=== PATIENT | female | born 1965 | race Caucasian/White ===

== ENCOUNTER 2020-07-08 10:59 | Emergency (ER) | payer OTHER ==
[2020-07-08 11:14] VITALS: BP 160/90; PULSE 63; TEMP 97.5; BMI 31.3
[2020-07-08] MEDS ORDERED: KETOROLAC TROMETHAMINE 15 MG/ML VIAL IM ONE (11:18)
[2020-07-08] MEDS ORDERED: KETOROLAC TROMETHAMINE 15 MG/ML VIAL ONE (11:28)
[2020-07-08 11:53] LABS: BASO % 0.5 % (0-2.0); EOS % 1.9 % (0-4.5); HEMOGLOBIN 12.8 GM/dl (10.7-15.3); LYMPH % 9.9 % (8-40); MCH 28.5 pg (25.7-33.7); MCHC 32.8 g/dl (32.0-36.0); MEAN CELL VOLUME 86.9 fl (80-96); MEAN PLT VOLUME 9.3 fl (7.5-11.1); MONO % 4.3 % (3.8-10.2); NEUT % 83.4 % (42.8-82.8); PLATELET COUNT 223 K/MM3 (134-434); RBC 4.49 M/mm3 (3.60-5.2); RDW 15.2 % (11.6-15.6); WHITE BLOOD COUNT 8.7 K/mm3 (4.0-10.8)
[2020-07-08 12:05] LABS: ALBUMIN 3.9 g/dl (3.4-5.0); BILIRUBIN,TOTAL 1.3 mg/dl (0.2-1); CREATININE 0.7 mg/dl (0.55-1.3); TOT PROT 6.8 g/dl (6.4-8.2)
[2020-07-08 12:12] LABS: ACTIVATED PTT 32.2 SECONDS (25.2-36.5)
[2020-07-08 12:16] LABS: INR 1.08 (0.82-1.09)
[2020-07-08 12:46] LABS: EPITHELIAL CELLS MANY /hpf
[2020-07-08 13:15] LABS: LIPASE 71 U/L (73-393)
== END 2020-07-08 12:51 | disposition home or self-care (01) ==
LOC: SUPCPDRO 10:59 → FER 10:59
PROC: 3E0233Z Introduction of Anti-inflammatory into Muscle, Percutaneous Approach (ICD-10-PCS; principal; 2020-07-08)
DX: N20.0 Calculus of kidney (principal)
CPT/HCPCS: 36415; 74176-TC; 80053; 81003; 81015; 83690; 84484; 85025; 85610; 85730; 87086; 99285-25

== ENCOUNTER 2020-07-11 07:18 | Emergency (ER) | payer OTHER ==
[2020-07-11] MEDS ORDERED: ONDANSETRON 4 MG/2 ML VIAL IVPUSH ONE (07:20)
[2020-07-11] MEDS ORDERED: KETOROLAC TROMETHAMINE 15 MG/ML VIAL IVPUSH ONE (07:20)
[2020-07-11] MEDS ORDERED: SODIUM CHLORIDE 1,000 ML IV STA (07:25)
[2020-07-11 08:11] VITALS: BP 147/78; PULSE 70; TEMP 97.9; BMI 31.1
[2020-07-11] MEDS ORDERED: ACETAMINOPHEN 325 MG TABLET (FP) PO ONE (09:04)
[2020-07-11] MEDS ORDERED: ACETAMINOPHEN 325 MG TABLET (FP) ONE (09:06)
== END 2020-07-11 09:42 | disposition home or self-care (01) ==
LOC: FER 07:18
PROC: 3E0333Z Introduction of Anti-inflammatory into Peripheral Vein, Percutaneous Approach (ICD-10-PCS; principal; 2020-07-11)
PROC: 3E033GC Introduction of Other Therapeutic Substance into Peripheral Vein, Percutaneous Approach (ICD-10-PCS; 2020-07-11)
PROC: 3E0337Z Introduction of Electrolytic and Water Balance Substance into Peripheral Vein, Percutaneous Approach (ICD-10-PCS; 2020-07-11)
DX: N20.0 Calculus of kidney (principal)
CPT/HCPCS: 81003; 87086; 99284-25

== ENCOUNTER 2021-01-05 12:40 | Emergency (ER) | payer OTHER ==
[2021-01-05] MEDS ORDERED: TETRACAINE 0.5% OPHTH SOLN 2 ML BOTTLE ONE (13:04)
[2021-01-05] MEDS ORDERED: FLUORESCEIN NA 1 EA STRIP ONE (13:04)
[2021-01-05 13:18] VITALS: BP 127/74; PULSE 66; TEMP 98; BMI 33.5
== END 2021-01-05 14:10 | disposition home or self-care (01) ==
LOC: FER 12:40
DX: S05.01XA Injury of conjunctiva and corneal abrasion without foreign body, right eye, initial encounter (principal); Y77.11 Contact lens associated with adverse incidents; Y92.9 Unspecified place or not applicable
CPT/HCPCS: 99283-25